=== PATIENT | female | born 1980 | race Caucasian/White ===

== ENCOUNTER → 2017-12-31 | Outpatient (REF) | LOC: M SMT 12:19 | DX: M54.5 Low back pain (principal) ==

== ENCOUNTER 2018-01-21 07:38 | Day surgery (SDC) | payer OTHER ==
[2018-01-21] MEDS ORDERED: NS 1,000 ML IV (08:00)
[2018-01-21] MEDS ORDERED: fentaNYL 100 MCG/2 ML INJECTION (J3010) As Ordered (09:08)
[2018-01-21] MEDS ORDERED: PROPOFOL 500 MG/50 ML VIAL As Ordered (09:08)
[2018-01-21] MEDS ORDERED: LIDOCAINE 2% INJ 100 MG/5 ML SDV (FOR ANES.) As Ordered (09:08)
[2018-01-21] MEDS ORDERED: MIDAZOLAM INJ 2 MG/2 ML VIAL (J2250) As Ordered (09:08)
== END 2018-01-21 09:55 | disposition home or self-care (01) ==
LOC: M OPP 07:38
DX: Z12.11 Encounter for screening for malignant neoplasm of colon (principal); Z85.038 Personal history of other malignant neoplasm of large intestine; R63.4 Abnormal weight loss; R19.7 Diarrhea, unspecified; R14.0 Abdominal distension (gaseous); K22.8 Other specified diseases of esophagus; K29.70 Gastritis, unspecified, without bleeding; Z92.21 Personal history of antineoplastic chemotherapy; E11.9 Type 2 diabetes mellitus without complications; R11.0 Nausea; E78.5 Hyperlipidemia, unspecified; F41.9 Anxiety disorder, unspecified; F31.9 Bipolar disorder, unspecified; F43.10 Post-traumatic stress disorder, unspecified; R51 Headache; Z91.018 Allergy to other foods; Z79.899 Other long term (current) drug therapy
CPT/HCPCS: 45378

== ENCOUNTER 2018-03-04 07:11 | Day surgery (SDC) | payer OTHER ==
[2018-03-04] MEDS ORDERED: NS 1,000 ML IV (07:30)
[2018-03-04] MEDS ORDERED: LIDOCAINE 2% INJ 100 MG/5 ML SDV (FOR ANES.) As Ordered (07:39)
[2018-03-04] MEDS ORDERED: PROPOFOL 200 MG/20 ML VIAL As Ordered (07:39)
== END 2018-03-04 08:54 | disposition home or self-care (01) ==
LOC: M OPP 07:11
DX: Z12.11 Encounter for screening for malignant neoplasm of colon (principal); Z85.038 Personal history of other malignant neoplasm of large intestine; E11.9 Type 2 diabetes mellitus without complications; K21.9 Gastro-esophageal reflux disease without esophagitis; R11.2 Nausea with vomiting, unspecified; E78.5 Hyperlipidemia, unspecified; R63.4 Abnormal weight loss; M19.90 Unspecified osteoarthritis, unspecified site; M54.9 Dorsalgia, unspecified; F41.9 Anxiety disorder, unspecified; F31.9 Bipolar disorder, unspecified; R51 Headache; Z92.21 Personal history of antineoplastic chemotherapy; Z91.018 Allergy to other foods; Z79.84 Long term (current) use of oral hypoglycemic drugs; Z79.899 Other long term (current) drug therapy
CPT/HCPCS: G0105

== ENCOUNTER 2018-07-29 14:35 | Inpatient (IN) | payer MEDICAID, SELFPAY, OTHER ==
[2018-07-29 15:37] LABS: HEMATOCRIT 40.9 % (36.0-47.0); MEAN CORPUSCULAR HEMOGLOBIN 30.6 pg (27.0-33.0); MEAN CORPUSCULAR HGB CONC 34.2 g/dl (32.0-36.5); MEAN CORPUSCULAR VOLUME 89.3 fl (80.0-96.0); PLATELET COUNT, AUTOMATED 286 10^3/uL (150-450); RED BLOOD COUNT 4.58 10^6/uL (4.00-5.40); RED CELL DISTRIBUTION WIDTH 12.4 % (11.5-14.5); WHITE BLOOD COUNT 8.1 10^3/uL (4.0-10.0)
[2018-07-29 15:54] LABS: AMPHETAMINES LEVEL URINE NEGATIVE (NEGATIVE); BARBITURATES URINE NEGATIVE (NEGATIVE); BENZODIAZEPINES URINE NEGATIVE (NEGATIVE); CANNABINOIDS URINE NEGATIVE (NEGATIVE); COCAINE METABOLITE URINE NEGATIVE (NEGATIVE); METHADONE URINE NEGATIVE (NEGATIVE); OPIATES URINE NEGATIVE (NEGATIVE); PHENCYCLIDINE URINE NEGATIVE (NEGATIVE)
[2018-07-29 16:21] LABS: ACETAMINOPHEN LEVEL < 2.0 UG/ML (10.0-30.0); ALBUMIN 3.3 GM/DL (3.2-5.2); ALBUMIN/GLOBULIN RATIO 0.77 (1.00-1.93); ALKALINE PHOSPHATASE 53 U/L (45-117); ALT/SGPT 12 U/L (12-78); ANION GAP 8 MEQ/L (8-16); AST/SGOT 6 U/L (7-37); BILIRUBIN,DIRECT 0.1 MG/DL (0.0-0.2); BILIRUBIN,TOTAL 0.5 MG/DL (0.2-1.0); BLOOD UREA NITROGEN 12 MG/DL (7-18); CALCIUM LEVEL 8.9 MG/DL (8.5-10.1); CARBON DIOXIDE LEVEL 28 MEQ/L (21-32); CHLORIDE LEVEL 100 MEQ/L (98-107); CREATININE FOR GFR 0.72 MG/DL (0.55-1.30); GLOMERULAR FILTRATION RATE > 60.0 (>60); GLUCOSE, FASTING 385 MG/DL (70-100); POTASSIUM SERUM 4.2 MEQ/L (3.5-5.1); SALICYLATE LEVEL < 1.7 MG/DL (5.0-30.0); SODIUM LEVEL 136 MEQ/L (136-145); TOTAL PROTEIN 7.6 GM/DL (6.4-8.2)
[2018-07-29] MEDS: HumuLIN R (REGULAR) INSULIN (NovoLIN R) **100U/ML** PER UNIT SC (16:51)
[2018-07-29 17:03] LABS: CONTROL LINE HCG INT CTR LINE PRESENT; HCG, SERUM QUALITATIVE NEGATIVE (NEGATIVE)
[2018-07-29 17:51] LABS: BEDSIDE GLUCOSE 252 MG/DL (70-105)
[2018-07-29] MEDS ORDERED: GLUCAGON FOR INJ 1 MG VIAL (J1610) SC (18:15)
[2018-07-29] MEDS ORDERED: GLUCOSE 4 GM CHEW TABLET PO (18:15)
[2018-07-29] MEDS ORDERED: ALPRAZolam 0.5 MG TAB PO (18:15)
[2018-07-29] MEDS ORDERED: ACETAMINOPHEN TAB 650MG DOSE (2X325MG) PO (18:15)
[2018-07-29] MEDS ORDERED: MAALOX 30 ML SUSP *UDC PO (18:15)
[2018-07-29] MEDS ORDERED: MOM 30ML SUSPENSION UDC PO (18:15)
[2018-07-29] MEDS ORDERED: traZODone 50 MG TAB PO (18:15)
[2018-07-29] MEDS ORDERED: DEXTROSE 50% 50 ML SYRINGE IV (18:15)
[2018-07-29] MEDS: HumaLOG INSULIN (NovoLOG) PER UNIT SC (21:00)
[2018-07-29] MEDS ORDERED: ENTER DRUG NAME HERE (PATIENT'S OWN MED) PO (21:00)
[2018-07-29] MEDS: TOPIRAMATE (TopAMAX) 25 MG TAB PO (22:28)
[2018-07-29] MEDS: GABAPENTIN 300 MG CAP PO (22:28)
[2018-07-29] MEDS: ATORVASTATIN 10 MG TAB PO (22:28)
[2018-07-29] MEDS: BACLOFEN 10 MG TAB PO (22:29)
[2018-07-29] MEDS: rOPINIRole 1MG TAB PO (22:29)
[2018-07-30 06:48] LABS: BEDSIDE GLUCOSE 245 MG/DL (70-105)
[2018-07-30] MEDS: GLIMEPIRIDE 2 MG TAB PO ×2 (06:54→17:13)
[2018-07-30] MEDS: HumaLOG INSULIN (NovoLOG) PER UNIT SC ×4 (06:57→21:35)
[2018-07-30] MEDS: valACYclovir HCL 500 MG TAB PO (08:31)
[2018-07-30] MEDS: GABAPENTIN 300 MG CAP PO ×3 (08:31→21:33)
[2018-07-30] MEDS: PERCOCET 5MG/325MG TAB PO ×2 (09:20→16:31)
[2018-07-30] MEDS ORDERED: ALBUTEROL 90 MCG/ACT 8GM HFA INHALER INH (10:15)
[2018-07-30] MEDS: OMEPRAZOLE 20 MG CAP PO (11:06)
[2018-07-30 12:09] LABS: BEDSIDE GLUCOSE 427 MG/DL (70-105)
[2018-07-30 17:12] LABS: BEDSIDE GLUCOSE 270 MG/DL (70-105)
[2018-07-30] MEDS: rOPINIRole 2MG TAB PO (20:48)
[2018-07-30 21:33] LABS: BEDSIDE GLUCOSE 278 MG/DL (70-105)
[2018-07-30] MEDS: BACLOFEN 10 MG TAB PO (21:33)
[2018-07-30] MEDS: ATORVASTATIN 10 MG TAB PO (21:33)
[2018-07-30] MEDS: TOPIRAMATE (TopAMAX) 25 MG TAB PO (21:33)
[2018-07-31 06:14] LABS: BEDSIDE GLUCOSE 217 MG/DL (70-105)
[2018-07-31] MEDS: GLIMEPIRIDE 2 MG TAB PO (06:31)
[2018-07-31] MEDS: HumaLOG INSULIN (NovoLOG) PER UNIT SC ×2 (06:32→12:15)
[2018-07-31] MEDS: PERCOCET 5MG/325MG TAB PO ×2 (06:35→13:33)
[2018-07-31] MEDS: GABAPENTIN 300 MG CAP PO ×2 (08:10→15:42)
[2018-07-31] MEDS: rOPINIRole 2MG TAB PO (08:10)
[2018-07-31] MEDS: OMEPRAZOLE 20 MG CAP PO (08:10)
[2018-07-31] MEDS: valACYclovir HCL 500 MG TAB PO (08:10)
[2018-07-31 11:11] LABS: KETONE, URINE AUTO RFX NEGATIVE (NEGATIVE); LEUKOCYTE ESTERASE UR AUTO RFX 2+ (NEGATIVE); MUCUS, URINE RFX SMALL (NEGATIVE); NITRITE, URINE AUTO RFX NEGATIVE (NEGATIVE); RBC, URINE AUTO RFX 3 /HPF (0-3); SPECIFIC GRAVITY UR AUTO RFX 1.024 (1.002-1.035); SQUAM EPITHELIAL CELL UR AURFX 9 /HPF (0-6); WBC, URINE AUTO RFX 6 /HPF (0-3); YEAST LIKE CELL URINE AUTO RFX SMALL
[2018-07-31] MEDS ORDERED: CETIRIZINE (ZyrTEC) 10 MG TAB PO (11:30)
[2018-07-31] MEDS: FLUCONAZOLE 50MG TABLET PO (12:10)
[2018-07-31] MEDS: SERTRALINE HCL 50 MG TAB PO (12:10)
[2018-07-31 12:17] LABS: BEDSIDE GLUCOSE 342 MG/DL (70-105)
[2018-08-03] MEDS ORDERED: FLUCONAZOLE 50MG TABLET PO (09:00)
[2018-08-04 14:16] LABS: ETHYL ALCOHOL (ETHANOL) < 0.003 % (0.000-0.010)
== END 2018-07-31 16:55 | disposition home or self-care (01) | DRG 754 ==
LOC: M ED 14:35 → M ED INP 18:05 → M PSY 20:47
DX: F32.9 Major depressive disorder, single episode, unspecified (principal); F43.9 Reaction to severe stress, unspecified; Z81.8 Family history of other mental and behavioral disorders; E11.42 Type 2 diabetes mellitus with diabetic polyneuropathy; B00.2 Herpesviral gingivostomatitis and pharyngotonsillitis; M51.36 Other intervertebral disc degeneration, lumbar region; G25.81 Restless legs syndrome; E78.5 Hyperlipidemia, unspecified; B37.3 Candidiasis of vulva and vagina; J45.909 Unspecified asthma, uncomplicated; H92.02 Otalgia, left ear; G89.29 Other chronic pain; R51 Headache; Z85.038 Personal history of other malignant neoplasm of large intestine; Z90.49 Acquired absence of other specified parts of digestive tract; Z79.899 Other long term (current) drug therapy; Z79.4 Long term (current) use of insulin; Z91.018 Allergy to other foods; Z91.410 Personal history of adult physical and sexual abuse; Z91.411 Personal history of adult psychological abuse

== ENCOUNTER → 2024-06-16 | Outpatient (REF) | payer MEDICARE, MEDICAID ==
[~2024-06-16] MED LIST: ALPR0.5T3 PO; ATOR1TAB19 PO; BACL10TA2 PO; GABA-1490 PO; GLIM4TAB5 PO; INVO300T PO; LISI2.5T9; OXYC1TAB23 PO; PRIS1TAB; REQU2TAB3 PO; ROPI2TAB46 PO; SERT-141 PO; TOPA50TA8 PO; TOPI25TA10 PO; TRIL150T; VALT500T PO; VENL-102 PO; VENL50TA2 PO; VENTAER INH; XANA0.25
[2024-06-16 19:38] LABS: PERCENT SATURATION 15.7 % (13.2-45.0)
== END ==
LOC: M LAB REF 18:24
PROVIDERS: ATTEND Internal Medicine Nephrology
DX: D50.9 Iron deficiency anemia, unspecified (principal)

== ENCOUNTER → 2024-08-05 | Outpatient (CLI) | payer MEDICARE, MEDICAID ==
[~2024-08-05] VITALS: Ht 154.9 cm; Wt 90.9 kg
[~2024-08-05] MED LIST changes: +ALBUTEROL SULFATE 2.5MG/0.5ML INH NEB SOLN INH PRN; +EPINEPHrine INJ 1 MG/ML 1ML AMP IM PRN; +NS 1,000 ML IV SCH; +diphenhydrAMINE 50MG/ML VIAL IV PRN; +methylPREDNISolone 125MG 2ML VIAL IV PRN
[2024-08-05 08:15] VITALS: BP 127/61; O2SAT 97
[2024-08-05] MEDS: IRON SUCROSE 400 MG in NS 250 ML OVER 2.5 HRS IV ONE (08:47)
[2024-08-05 10:00] VITALS: BP 130/74; O2SAT 96
[2024-08-05 12:00] VITALS: BP 150/88; O2SAT 97
== END ==
LOC: M INFU 07:56
PROVIDERS: ATTEND Internal Medicine Nephrology
DX: D50.9 Iron deficiency anemia, unspecified (principal); Z91.018 Allergy to other foods
CPT/HCPCS: 96365; 96366; J1756